=== PATIENT | female | born 1975 | race Hispanic/Latino ===

== ENCOUNTER 2017-08-17 21:24 | Observation (INO) | payer BC ==
[~2017-08-17] VITALS: Ht 160 cm; Wt 61.2 kg
[2017-08-17 21:36] LABS: BASOPHILS % (AUTO) 0.9 % (0.0-5.0); EOSINOPHILS % (AUTO) 4.5 % (0.0-8.0); HEMATOCRIT 33.1 % (36-48); LYMPHOCYTES % (AUTO) 36.1 % (21.0-51.0); MEAN CORPUSCULAR HEMOGLOBIN 24.8 pg (27.0-33.0); MEAN CORPUSCULAR HGB CONC 31.9 g/dL (32.0-36.0); MEAN CORPUSCULAR VOLUME 77.6 fL (79-99); NEUTROPHILS % (AUTO) 50.5 % (40.0-77.0); PLATELET COUNT (AUTO) 386 K/uL (130-400); RED BLOOD CELL COUNT(AUTO) 4.27 MIL/uL (4.00-5.50); RED CELL DISTRIBUTION WIDTH 18.2 % (11.0-15.5); WHITE BLOOD COUNT (AUTO) 11.1 K/uL (4.8-10.8)
[2017-08-17] MEDS ORDERED: ASPIRIN 325 MG TABLET ONE (21:37)
[2017-08-17] MEDS ORDERED: NITROGLYCERIN 1GM/1 INCH PACKET TD ONE (21:37)
[2017-08-17 21:50] LABS: INR 0.93 (0.85-1.15); PARTIAL THROMBOPLASTIN TIME 24.9 SEC (26.3-35.5); PROTHROMBIN TIME 9.8 SEC (9.6-11.6)
[2017-08-17 21:51] LABS: CARBON DIOXIDE 26 mmol/L (21-32); CHLORIDE 102 mmol/L (101-111); CREATININE 0.6 mg/dL (0.5-1.5); GLOMERULAR FILTR. RATE CALC 116 mL/min (>60); GLUCOSE,RANDOM 96 mg/dL (70-105); POTASSIUM 3.1 mmol/L (3.5-5.1); SODIUM SERUM 139 mmol/L (136-145); UREA NITROGEN, BLOOD 8 mg/dL (7-18)
[2017-08-17 22:05] LABS: ALANINE AMINOTRANSFERASE 23 U/L (12-78); ALBUMIN 3.8 g/dL (3.5-5.0); BILIRUBIN,TOTAL 0.2 mg/dL (0.2-1.0); CREATINE KINASE MB < 0.5 ng/mL (0.5-3.6); CREATINE KINASE, TOTAL 35 U/L (21-232); MYOGLOBIN 14 ng/mL (10-92); TOTAL PROTEIN, SERUM 8.4 g/dL (6.0-8.3)
[2017-08-17 22:19] LABS: ASPARTATE AMINOTRANSFERASE 19 U/L (10-37)
[2017-08-18] VITALS (8 sets, daily range): BP systolic 142–164; BP diastolic 93–117
[2017-08-18] MEDS ORDERED: POTASSIUM BICARB/CIT AC 25 MEQ TABLET.EFF ONE (00:35)
[2017-08-18] MEDS ORDERED: ZOLP5TAB2 PO (02:53)
[2017-08-18] MEDS ORDERED: LOSA25TA21 PO (02:53)
[2017-08-18] MEDS ORDERED: LORAZEPAM 2 MG/ML 1 ML VIAL IVP ONE (03:00)
[2017-08-18] MEDS ORDERED: LORAZEPAM 2 MG/ML 1 ML VIAL ONE (03:10)
[2017-08-18] MEDS ORDERED: ACETAMINOPHEN 325 MG TAB ONE (03:12)
[2017-08-18 03:23] LABS: HEMATOCRIT 28.2 % (36-48); MEAN CORPUSCULAR HEMOGLOBIN 25.2 pg (27.0-33.0); MEAN CORPUSCULAR HGB CONC 32.6 g/dL (32.0-36.0); MEAN CORPUSCULAR VOLUME 77.3 fL (79-99); PLATELET COUNT (AUTO) 287 K/uL (130-400); RED BLOOD CELL COUNT(AUTO) 3.64 MIL/uL (4.00-5.50); RED CELL DISTRIBUTION WIDTH 17.7 % (11.0-15.5); WHITE BLOOD COUNT (AUTO) 10.5 K/uL (4.8-10.8)
[2017-08-18] MEDS ORDERED: POTASSIUM CHLORIDE 20MEQ/100ML 100 ML IV PRN (03:30)
[2017-08-18] MEDS ORDERED: POTASSIUM CHLORIDE 10% ELIXIR 20 MEQ/15 ML UDCUP PO PRN (03:30)
[2017-08-18] MEDS ORDERED: NITROGLYCERIN 0.4 MG SL TAB SL PRN (03:30)
[2017-08-18] MEDS ORDERED: ACETAMINOPHEN 325 MG TAB PO PRN (03:30)
[2017-08-18] MEDS ORDERED: CLONIDINE HCL 0.1 MG TABLET PO PRN (03:30)
[2017-08-18] MEDS ORDERED: LACTULOSE 20 GM/30 ML UDCUP PO PRN (03:30)
[2017-08-18] MEDS ORDERED: POTASSIUM CHLORIDE 20 MEQ ERTAB PO PRN (03:30)
[2017-08-18] MEDS ORDERED: LIDOCAINE HCL-MPF 1% 2ML VIAL IJ PRN (03:30)
[2017-08-18 03:52] LABS: ALANINE AMINOTRANSFERASE 20 U/L (12-78); ALBUMIN 3.3 g/dL (3.5-5.0); ASPARTATE AMINOTRANSFERASE 18 U/L (10-37); BILIRUBIN,TOTAL 0.3 mg/dL (0.2-1.0); CARBON DIOXIDE 26 mmol/L (21-32); CHLORIDE 103 mmol/L (101-111); CHOLESTEROL 188 mg/dL (<200); CREATINE KINASE MB < 0.5 ng/mL (0.5-3.6); CREATINE KINASE, TOTAL 27 U/L (21-232); CREATININE 0.6 mg/dL (0.5-1.5); GLOMERULAR FILTR. RATE CALC 116 mL/min (>60); GLUCOSE,RANDOM 109 mg/dL (70-105); HDL CHOLESTEROL 50 mg/dL (35-85); LDL DIRECT 142 mg/dL (0-99); MYOGLOBIN 16 ng/mL (10-92); POTASSIUM 3.8 mmol/L (3.5-5.1); SODIUM SERUM 137 mmol/L (136-145); TOTAL PROTEIN, SERUM 7.1 g/dL (6.0-8.3); TRIGLYCERIDES 64 mg/dL (30-200); TROPONIN I < 0.04 ng/mL (0.00-0.06); UREA NITROGEN, BLOOD 8 mg/dL (7-18)
[2017-08-18] MEDS: FAMOTIDINE 20MG TAB 20 MG TAB PO SCH ×2 (09:00→23:05)
[2017-08-18] MEDS: ASPIRIN 325 MG TABLET PO SCH (09:01)
[2017-08-18] MEDS: METOPROLOL TARTRATE 25 MG TAB PO SCH ×2 (09:01→23:05)
[2017-08-18] MEDS: ACETAMINOPHEN 325 MG TAB PO PRN ×2 (09:06→15:54)
[2017-08-18] MEDS ORDERED: ZOLPIDEM TARTRATE 5 MG TAB PO PRN (10:15)
[2017-08-18 10:19] LABS: CREATINE KINASE MB < 0.5 ng/mL (0.5-3.6); CREATINE KINASE, TOTAL 29 U/L (21-232); MYOGLOBIN 19 ng/mL (10-92); TROPONIN I < 0.04 ng/mL (0.00-0.06)
[2017-08-18] MEDS: LOSARTAN 50 MG TABLET PO SCH (15:40)
[2017-08-19] VITALS: BP 130/82
[2017-08-19] MEDS: ACETAMINOPHEN 325 MG TAB PO PRN ×2 (00:54→10:18)
[2017-08-19 04:00] VITALS: BP 123/82
[2017-08-19 07:42] VITALS: BP 127/73
[2017-08-19] MEDS: ASPIRIN 325 MG TABLET PO SCH (10:18)
[2017-08-19] MEDS: METOPROLOL TARTRATE 25 MG TAB PO SCH (10:18)
[2017-08-19] MEDS: FAMOTIDINE 20MG TAB 20 MG TAB PO SCH (10:18)
[2017-08-19] MEDS: LOSARTAN 50 MG TABLET PO SCH (10:18)
[2017-08-19 11:08] VITALS: BP 142/93
[2017-08-19 16:17] VITALS: BP 141/94
== END 2017-08-19 18:14 | disposition home or self-care (01) ==
LOC: EDH 21:24 → EDHIP 23:42 → 3CH 08-18 01:16
PROVIDERS: ADMIT Internal Medicine; ATTEND Internal Medicine
DX: R07.89 Other chest pain (principal); I10 Essential (primary) hypertension; E87.6 Hypokalemia; D64.9 Anemia, unspecified; J45.909 Unspecified asthma, uncomplicated; K29.70 Gastritis, unspecified, without bleeding; F41.9 Anxiety disorder, unspecified; Z82.49 Family history of ischemic heart disease and other diseases of the circulatory system
CPT/HCPCS: 36415 ×2; 71045; 80053 ×2; 80061; 82550 ×3; 82553 ×3; 83874 ×3; 84484 ×3; 85025; 85027; 85610; 85730; 93005 ×3; 93306; 99291; G0378 ×43; J2060

== ENCOUNTER 2017-08-24 16:51 | Emergency (ER) | payer BC ==
[~2017-08-24 16:51] MED LIST: LOSA25TA21 PO; ZOLP5TAB2 PO
[2017-08-24 17:37] LABS: BASOPHILS % (AUTO) 1.3 % (0.0-5.0); EOSINOPHILS % (AUTO) 7.6 % (0.0-8.0); HEMATOCRIT 29.6 % (36-48); MEAN CORPUSCULAR HEMOGLOBIN 25.6 pg (27.0-33.0); MEAN CORPUSCULAR HGB CONC 32.6 g/dL (32.0-36.0); MEAN CORPUSCULAR VOLUME 78.6 fL (79-99); MONOCYTES % (AUTO) 6.3 % (3.0-13.0); NEUTROPHILS % (AUTO) 55.8 % (40.0-77.0); PLATELET COUNT (AUTO) 405 K/uL (130-400); RED BLOOD CELL COUNT(AUTO) 3.77 MIL/uL (4.00-5.50); RED CELL DISTRIBUTION WIDTH 17.8 % (11.0-15.5); WHITE BLOOD COUNT (AUTO) 8.8 K/uL (4.8-10.8)
[2017-08-24 17:38] LABS: BILIRUBIN,URINE Negative (NEGATIVE); COLOR,URINE Yellow (YELLOW); GLUCOSE, URINE (UA) Negative (NEGATIVE); KETONES,URINE Negative (NEGATIVE); LEUKOCYTE ESTERASE ,URINE Small (NEGATIVE); NITRATE,URINE Negative (NEGATIVE); OCCULT BLOOD,URINE Negative (NEGATIVE); PROTEIN,URINE Negative (NEGATIVE); UROBILINOGEN,URINE 0.2 mg/dL (0.2-1.0)
[2017-08-24 17:46] LABS: APPEARANCE,URINE SLIGHTLY CLOUDY (CLEAR)
[2017-08-24 17:47] LABS: HCG,QUAL RESULT NEGATIVE (NEGATIVE)
[2017-08-24 17:48] LABS: BACTERIA,URINE Few /HPF (None Seen); MUCUS,URINE Rare LPF (None Seen); RBC,URINE 0-1 /HPF (0-1); SQUAMOUS EPITHELIAL CELL,UR Moderate /HPF (0-2)
[2017-08-24 17:49] LABS: CREATININE 0.6 mg/dL (0.5-1.5); POTASSIUM 3.2 mmol/L (3.5-5.1)
[2017-08-24] MEDS ORDERED: IOPAMIDOL-370 100 ML VIAL IV ONE (18:12)
[2017-08-24] MEDS ORDERED: POTASSIUM BICARB/CIT AC 25 MEQ TABLET.EFF ONE (19:18)
== END 2017-08-24 19:48 | disposition home or self-care (01) ==
LOC: EDH 16:51
DX: R00.2 Palpitations (principal); R07.89 Other chest pain; F41.9 Anxiety disorder, unspecified; I10 Essential (primary) hypertension; J45.909 Unspecified asthma, uncomplicated
CPT/HCPCS: 36415; 71275; 80048; 81001; 81025; 85025; 93005; 99285; Q9967; 96360; 96361

== ENCOUNTER → 2024-12-23 | Outpatient (CLI) | payer BC ==
[~2024-12-23] MED LIST changes: +IOHEXOL 350 MG/ML 100ML INFUS..BTL IV ONE; -LOSA25TA21 PO; +LOSA25TA41 PO; +ZOLP-684 PO; -ZOLP5TAB2 PO
== END | disposition home or self-care (01) ==
LOC: RAH 08:04
PROVIDERS: ATTEND Student in an Organized Health Care Education/Training Program
DX: R07.9 Chest pain, unspecified (principal)
CPT/HCPCS: 75574; J3490 ×2; Q9967